=== PATIENT | female | born 1940 | race Two or more races ===

== ENCOUNTER → 2017-05-14 | Outpatient (CLI) | payer MEDICARE ==
[~2017-05-14] VITALS: Ht 154.9 cm; Wt 51.0 kg
[~2017-05-14] MED LIST: ASPI81 PO; CALC-261 PO; CARV3 PO; LISI-662 PO; SUMA25TA9 PO
[2017-05-14 10:02] VITALS: BP 144/81
== END | disposition home or self-care (01) ==
LOC: SRCNTR 10:01
PROVIDERS: ATTEND Internal Medicine Cardiovascular Disease
DX: I10 Essential (primary) hypertension (principal); R55 Syncope and collapse; Z79.82 Long term (current) use of aspirin; Z88.0 Allergy status to penicillin; Z88.5 Allergy status to narcotic agent
CPT/HCPCS: 93005; G0463

== ENCOUNTER → 2017-06-30 | Outpatient (CLI) | payer MEDICARE ==
[~2017-06-30] VITALS: Ht 154.9 cm; Wt 51.0 kg
[~2017-06-30] MED LIST changes: +ACET-784 PO; +AMLO2.5T PO
[2017-06-30 11:34] VITALS: BP 156/67
== END | disposition home or self-care (01) ==
LOC: SRCNTR 11:33
PROVIDERS: ATTEND Internal Medicine Cardiovascular Disease
DX: I10 Essential (primary) hypertension (principal); R55 Syncope and collapse; Z79.82 Long term (current) use of aspirin; Z88.0 Allergy status to penicillin; Z88.5 Allergy status to narcotic agent
CPT/HCPCS: G0463

== ENCOUNTER → 2017-07-30 | Outpatient (CLI) | payer MEDICARE ==
[~2017-07-30] VITALS: Ht 154.9 cm; Wt 51.0 kg
[~2017-07-30] MED LIST changes: -CARV3 PO; -SUMA25TA9 PO
[2017-07-30 10:40] VITALS: BP 139/74
== END | disposition home or self-care (01) ==
LOC: SRCNTR 10:31
PROVIDERS: ATTEND Internal Medicine Cardiovascular Disease
DX: I10 Essential (primary) hypertension (principal); R55 Syncope and collapse; Z79.82 Long term (current) use of aspirin; Z88.0 Allergy status to penicillin; Z88.5 Allergy status to narcotic agent
CPT/HCPCS: G0463

== ENCOUNTER → 2017-10-15 | Outpatient (CLI) | payer MEDICARE ==
[~2017-10-15] VITALS: Ht 154.9 cm; Wt 52.0 kg
[2017-10-15 10:33] VITALS: BP 157/72
== END | disposition home or self-care (01) ==
LOC: SRCNTR 10:04
PROVIDERS: ATTEND Internal Medicine Cardiovascular Disease
DX: I10 Essential (primary) hypertension (principal); R55 Syncope and collapse
CPT/HCPCS: G0463

== ENCOUNTER → 2017-12-17 | Outpatient (CLI) | payer MEDICARE ==
[~2017-12-17] VITALS: Ht 154.9 cm; Wt 53.0 kg
[~2017-12-17] MED LIST changes: -AMLO2.5T PO; +AMLO2.5T3 PO
[2017-12-17 10:30] VITALS: BP 142/73
== END | disposition home or self-care (01) ==
LOC: SRCNTR 10:02
PROVIDERS: ATTEND Internal Medicine Cardiovascular Disease
DX: I10 Essential (primary) hypertension (principal); R55 Syncope and collapse
CPT/HCPCS: G0463

== ENCOUNTER → 2018-03-21 | Outpatient (CLI) | payer MEDICARE ==
[~2018-03-21] VITALS: Ht 154.9 cm; Wt 52.0 kg
[~2018-03-21] MED LIST changes: -AMLO2.5T3 PO; +AMLO2.5T4 PO
[2018-03-21 10:02] VITALS: BP 162/70
== END | disposition home or self-care (01) ==
LOC: SRCNTR 09:57
PROVIDERS: ATTEND Internal Medicine Cardiovascular Disease
DX: I10 Essential (primary) hypertension (principal); R55 Syncope and collapse
CPT/HCPCS: G0463